=== PATIENT | male | born 1955 | race Caucasian/White ===

== ENCOUNTER 2020-01-12 16:47 | Emergency (ER) | payer MEDICARE ==
[2020-01-12] MEDS: Diphtheria,Pertussis(Acell),Tetanus Vaccine 0.5 ML SDV IM ONE (17:32)
--- NOTE | 2020-01-12 17:38 | EDM.PDOC ---
ED HPI GENERAL MEDICAL PROBLEM - General Chief Complaint: General Stated Complaint: FINGER LACERATION Time Seen by Provider: 01/12/20 17:22 Source of Information: Reports: Patient History Limitations: Reports: No Limitations - History of Present Illness INITIAL COMMENTS - FREE TEXT/NARRATIVE: Pt was working on his combine and cut his right middle finger against a metal part. No loss of function or sensation, here for laceration repair only. Doesn't remember when his last tetanus shot was given and so he will get an up to date Tdap today. Onset: Today Onset Date: 01/12/20 Onset Time: 02:00 Duration: Hour(s): Location: Reports: Upper Extremity, Right Improves with: Reports: None Worsens with: Reports: None Context: Reports: Trauma Associated Symptoms: Reports: No Other Symptoms - Related Data Allergies Allergy/AdvReac Type Severity Reaction Status Date / Time No Known Allergies Allergy Verified 05/12/14 08:50 Home Meds: Home Meds Diclofenac Potassium [Cataflam] 50 mg PO BID 05/12/14 [History] Gabapentin 300 mg PO BID 05/12/14 [History] Hydrochlorothiazide 50 mg PO DAILY 05/12/14 [History] amLODIPine Besylate/Benazepril [Amlodipine-Benazepril 10-20 MG] 1 each PO DAILY 05/12/14 [History] atorvaSTATin [Lipitor] 20 mg PO BEDTIME 05/12/14 [History] metFORMIN HCl [Metformin HCl] 500 mg PO BID 05/12/14 [History] methIMAzole [Methimazole] 10 mg PO DAILY 05/12/14 [History] Metoprolol Succinate [Toprol XL] 25 mg PO DAILY 03/12/15 [History] cephALEXin [Cephalexin] 250 mg PO Q6HR 7 Days #28 capsule 01/12/20 [Rx] Review of Systems - Review of Systems Review Of Systems: Comprehensive ROS is negative, except as noted in HPI. Constitutional: Reports: No Symptoms Eyes: Reports: No Symptoms Respiratory: Reports: No Symptoms Cardiovascular: Reports: No Symptoms, Lightheadedness Musculoskeletal: Reports: Hand Pain, Other (Right middle finger pain) Skin: Reports: Wound, Other (dorsal and ventral laceration,non-circumferential to middle phalanx of his right middle finger) Neurological: Reports: No Symptoms Psychiatric: Reports: No Symptoms ED EXAM, GENERAL - Physical Exam Exam: See Below Exam Limited By: No Limitations General Appearance: Alert, WD/WN, No Apparent Distress Head: Atraumatic, Normocephalic Neck: Normal Inspection, Supple, Non-Tender, Full Range of Motion Respiratory/Chest: No Respiratory Distress, Lungs Clear, Normal Breath Sounds Cardiovascular: Normal Peripheral Pulses, Regular Rate, Rhythm Back Exam: Normal Inspection, Full Range of Motion Extremities: Normal Range of Motion, Other (Right middle finger laceration (see procedure note)) Neurological: Alert, Oriented, CN II-XII Intact, Normal Cognition Psychiatric: Normal Affect Skin Exam: Wound/Incision (Right middle finger laceration (see procedure note)) ED TRAUMA EXTREMITY PROCEDURES - Laceration/Wound Repair Right Medial Dorsal Digit - 3rd (Middle) Lac/Wound Length In cm: 2.5 Appearance: Linear, Mildly Contaminated Distal NVT: Neuro & Vascular Intact, No Tendon Injury Anesthetic Type: Local Local Anesthesia - Lidocaine (Xylocaine): 1% Plain Local Anesthetic Volume: 2cc Skin Prep: Providone-Iodine (Betadine) Saline Irrigation (cc's): 100 Exploration/Debridement/Repair: Wound Explored, In a Bloodless Field Closed With: Sutures Suture Size: 5-0 Suture Type: Prolene, Interrupted Course - Vital Signs Last Recorded V/S: Last Vital Signs Temp 98.1 F 01/12/20 17:46 Pulse 74 01/12/20 17:46 Resp 16 01/12/20 17:46 BP 134/94 H 01/12/20 17:46 Pulse Ox 97 01/12/20 17:46 - Orders/Labs/Meds Meds: Medications Discontinued Medications Generic Name Dose Route Start Last Admin Trade Name Curly PRN Reason Stop Dose Admin Cephalexin Confirm 01/12/20 18:51 01/12/20 18:54 Keflex Administered 01/12/20 18:52 250 mg Dose Administration 250 mg .ROUTE .STK-MED ONE Diphtheria/Tetanus/Acell Pertussis 0.5 ml 01/12/20 17:28 01/12/20 17:32 Boostrix IM 01/12/20 17:29 0.5 ml .ONCE ONE Administration - Re-Assessments/Exams Free Text/Narrative Re-Assessment/Exam: 01/12/20 18:30 Finger laceration repaired; tdap given xray possible 1.2mm fx base of distal phalanx pt was placed in finger splint Rx Keflex written Instructions for SR in 7 days. Return ER if any signs of infection, redness, swelling, pus, fever Departure - Departure Time of Disposition: 18:40 Disposition: Home, Self-Care 01 Clinical Impression: Finger laceration Qualifiers: Encounter type: initial encounter Finger: middle finger Damage to nail status: without damage Foreign body presence: unspecified Laterality: right Qualified Code(s): S61.212A - Laceration without foreign body of right middle finger without damage to nail, initial encounter - Discharge Information *PRESCRIPTION DRUG MONITORING PROGRAM REVIEWED*: No *COPY OF PRESCRIPTION DRUG MONITORING REPORT IN PATIENT KEMI: No Prescriptions: cephALEXin [Cephalexin] 250 mg PO Q6HR 7 Days #28 capsule Instructions: Laceration Care, Adult Care Plan Goals: You have two lacerations to your right middle finger with a partial avulsion to the posterior aspect as well as a hairline fracture. The PA sutured your lacerations with ethilon 5-0 sutures which need to be removed in 10 days. Any RN or above may remove these if you so desire. Monitor wounds themselves for infection: swelling, redness, purulent drainage, loss of sensation and/or increased pain. if this occurs contact the hospital immediately. You have an aluminum splint supporting the fractured area. You may adjust this for comfort but use it often to avoid jarring movements of the middle knuckle of this finger.
[2020-01-12 17:47] VITALS: BP 134/94; PULSE 74
[2020-01-12] MEDS: Cephalexin 250 MG Cap ONE (18:54)
--- NOTE | 2020-01-13 09:16 | CR ---
DATE OF SERVICE: 01/12/20 CLINICAL DATA: Possible fx. RIGHT 3RD DIGIT: There is soft tissue deformity adjacent to the distal phalanx consistent with history of laceration. There is a minimally displaced fracture through the proximal aspect of the distal phalanx. There is also a 2 mm radiodensity adjacent to the base of the distal phalanx dorsally on the lateral view consistent with an osseous fragment or foreign body. No other acute abnormalities. [id number] [facility]
== END 2020-01-12 19:07 | disposition home or self-care (01) ==
LOC: LB.ED 16:47
DX: S61.212A Laceration without foreign body of right middle finger without damage to nail, initial encounter (principal); Z23 Encounter for immunization; W26.8XXA Contact with other sharp object(s), not elsewhere classified, initial encounter
CPT/HCPCS: 12001; 73140; 90471; 90715; 99283; A9270

== ENCOUNTER 2020-03-18 19:09 | Emergency (ER) | payer MEDICARE ==
--- NOTE | 2020-03-18 20:08 | EDM.PDOC ---
ED HPI GENERAL MEDICAL PROBLEM - General Chief Complaint: Laceration Stated Complaint: LACERATION Time Seen by Provider: 03/18/20 19:20 Source of Information: Reports: Patient History Limitations: Reports: No Limitations - History of Present Illness INITIAL COMMENTS - FREE TEXT/NARRATIVE: The patient is a 65-year-old white male who was working on his combine with a combine running and got his hand caught in the moving parts and suffered amputation of the distal 2 cm of his left middle finger. Along with the amputation he suffered laceration of the distal left ring finger and 4 cm laceration of the dorsum of his left hand. His last tetanus immunization was 1 month ago. He denies other injury Onset: Today Onset Date: 03/18/20 Onset Time: 18:30 Location: Reports: Upper Extremity, Left, Other (Laceration involves the dorsum of his hand. Also would laceration of the distal left ring finger and amputation as above with loss of the entire middle finger fingernail) - Related Data Allergies Allergy/AdvReac Type Severity Reaction Status Date / Time No Known Allergies Allergy Verified 05/12/14 08:50 Home Meds: Home Meds Diclofenac Potassium [Cataflam] 50 mg PO BID 05/12/14 [History] Gabapentin 300 mg PO BID 05/12/14 [History] Hydrochlorothiazide 50 mg PO DAILY 05/12/14 [History] amLODIPine Besylate/Benazepril [Amlodipine-Benazepril 10-20 MG] 1 each PO DAILY 05/12/14 [History] atorvaSTATin [Lipitor] 20 mg PO BEDTIME 05/12/14 [History] metFORMIN HCl [Metformin HCl] 500 mg PO BID 05/12/14 [History] methIMAzole [Methimazole] 10 mg PO DAILY 05/12/14 [History] Metoprolol Succinate [Toprol XL] 25 mg PO DAILY 03/12/15 [History] cephALEXin [Cephalexin] 250 mg PO Q6HR 7 Days #28 capsule 01/12/20 [Rx] Past Medical History HEENT History: Reports: Impaired Vision Endocrine/Metabolic History: Reports: Diabetes, Type II - Past Surgical History GI Surgical History: Reports: Hernia, Abdominal, Hernia Repair/Other Social & Family History - Caffeine Use Caffeine Use: Reports: None ED ROS GENERAL - Review of Systems Review Of Systems: See Below Constitutional: Denies: Fever, Chills Respiratory: Reports: No Symptoms GI/Abdominal: Reports: No Symptoms ED EXAM, SKIN/RASH Exam: See Below Exam Limited By: No Limitations General Appearance: Alert, Anxious, Mild Distress Throat/Mouth: Perioral Cyanosis Head: Atraumatic Neck: Normal Inspection, Full Range of Motion Respiratory/Chest: No Respiratory Distress Extremities: Other (Loss of distal 2 cm of the left middle finger, 2cm laceration of the distal left ring finger an 4 cm laceration of the dorsum of the left hand okay) Course - Vital Signs Text/Narrative:: Patient had wounds exposed and moistened with saline with gauze dressing applied over top moistened saline. Patient's last tetanus immunization was within a month. He was given 1 g of Ancef IV and 1 L of lactated Ringer solution. Prior to transfer he was given 1 mg of Dilaudid IM. Case was discussed with Dr. Crawford emergency physician at [facility], [place] who agreed to accept the patient in transfer to the emergency department there. Patient was cautioned against eating or drinking along the way to [place] as he will most likely need operative repair in the OR. Patient prefers transfer via private car versus ambulance - Orders/Labs/Meds Orders: Active Orders 24 hr Category Date Time Status Hand Comp Min 3V Lt [CR] Stat Exams 03/18/20 19:32 Ordered Departure - Departure Time of Disposition: 20:28 Disposition: DC/Tfer to Acute Hospital 02 Condition: Good Clinical Impression: Complete traumatic amputation of left middle finger through phalanx Qualifiers: Encounter type: initial encounter Qualified Code(s): S68.613A - Complete traumatic transphalangeal amputation of left middle finger, initial encounter Laceration of left hand without complication, excluding fingers Qualifiers: Encounter type: initial encounter Qualified Code(s): S61.412A - Laceration without foreign body of left hand, initial encounter Laceration of left ring finger Qualifiers: Encounter type: initial encounter Damage to nail status: without damage - Discharge Information *PRESCRIPTION DRUG MONITORING PROGRAM REVIEWED*: Not Applicable *COPY OF PRESCRIPTION DRUG MONITORING REPORT IN PATIENT KEMI: Not Applicable Forms: ED Department Discharge Additional Instructions: Go directly to [facility] to [facility]. Do not eat or drink anything along the way. Plans for you to have procedure to treat amputation and lacerations at the [facility]. - My Orders Last 24 Hours: My Active Orders 03/18/20 19:32 Hand Comp Min 3V Lt [CR] Stat - Assessment/Plan Last 24 Hours: My Active Orders 03/18/20 19:32 Hand Comp Min 3V Lt [CR] Stat
[2020-03-18] MEDS ORDERED: ceFAZolin 1 GM Vial IVPUSH ONE (20:37)
[2020-03-18] MEDS ORDERED: HYDROMORPHONE SCH (21:00)
[2020-03-19 01:13] VITALS: BP 90/57; PULSE 47
[2020-03-19] MEDS ORDERED: Lactated Ringers 1,000 ML IV STA (01:44)
--- NOTE | 2020-03-19 07:51 | CR ---
Date of Service: 03/18/20 Clinical Data: lacerations LEFT HAND: No priors. Patient is status post partial amputation of the distal phalanx of the third digit. There is also a large laceration involving the tip of the second digit with no associated bony abnormality. No other acute abnormalities. [id number]
== END 2020-03-18 21:05 ==
LOC: LB.ED 19:20
DX: S68.613A Complete traumatic transphalangeal amputation of left middle finger, initial encounter (principal); S61.215A Laceration without foreign body of left ring finger without damage to nail, initial encounter; S61.412A Laceration without foreign body of left hand, initial encounter; E11.9 Type 2 diabetes mellitus without complications; Z79.84 Long term (current) use of oral hypoglycemic drugs; W23.0XXA Caught, crushed, jammed, or pinched between moving objects, initial encounter
CPT/HCPCS: 73130; 82962; 96374; 99285; J0690; J1170; J7120

== ENCOUNTER 2021-01-21 11:31 | Emergency (ER) | payer MEDICARE ==
[2021-01-21] MEDS ORDERED: HYDROmorphone 2 MG/ML SDV IVPUSH ONE (11:54)
[2021-01-21] MEDS ORDERED: HYDROmorphone 2 MG/ML SDV ONE (12:09)
[2021-01-21 12:26] VITALS: BP 135/79; PULSE 62
[2021-01-21] MEDS ORDERED: Ketorolac 30 MG/ML SDV IVPUSH ONE (12:47)
[2021-01-21] MEDS ORDERED: Ketorolac 30 MG/ML SDV ONE (13:00)
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
--- NOTE | 2021-01-21 16:08 | CR ---
Date of Service: 01/21/21 Clinical Data: injury. RIGHT LOWER LEG: No priors. No acute fracture or dislocation. No lytic or blastic bone lesions. [id number] [facility]
--- NOTE | 2021-01-21 16:10 | CR ---
Date of Service: 01/21/21 Clinical Data: injury. RIGHT FEMUR: No acute fracture or dislocation. No lytic or blastic bone lesions. Mild osteoarthritic changes of the right hip and right knee. No soft tissue abnormalities. [id number] [facility]
== END 2021-01-21 13:18 | disposition home or self-care (01) ==
LOC: LB.ED 11:31
DX: S70.11XA Contusion of right thigh, initial encounter (principal); S80.01XA Contusion of right knee, initial encounter; E78.00 Pure hypercholesterolemia, unspecified; I10 Essential (primary) hypertension; E11.9 Type 2 diabetes mellitus without complications; Z79.84 Long term (current) use of oral hypoglycemic drugs; Z79.899 Other long term (current) drug therapy; W23.1XXA Caught, crushed, jammed, or pinched between stationary objects, initial encounter
CPT/HCPCS: 73552; 73590; 96374; 96375; 99283; J1170; J1885

== ENCOUNTER 2021-09-10 09:23 | Emergency (ER) | payer MEDICARE ==
[2021-09-10] MEDS: Aspirin 81 MG Tab.Chew PO ONE (09:51)
[2021-09-10 10:13] VITALS: BP 133/88; PULSE 55
== END 2021-09-10 11:32 | disposition home or self-care (01) ==
LOC: LB.ED 09:23
DX: R42 Dizziness and giddiness (principal); I10 Essential (primary) hypertension; E11.9 Type 2 diabetes mellitus without complications
CPT/HCPCS: 36415; 71045; 80053; 84484; 93005; 93010; 99283; 99284-25; A9270-GY; U0002

== ENCOUNTER 2022-06-17 14:55 | Emergency (ER) | payer MEDICARE ==
[2022-06-17] MEDS: Aspirin 81 MG Tab.Chew PO ONE (14:57)
[2022-06-17] MEDS: Nitroglycerin 0.4 MG Tab.SL SL ONE (15:06)
[2022-06-17 15:39] LABS: ESTIMATED GFR 73 mL/min (>60)
[2022-06-17] MEDS: Pantoprazole 40 MG Vial IVPUSH ONE (18:23)
[2022-06-17] MEDS: Magnesium Sulfate/Water 50 ML ONE (18:24)
[2022-06-17] MEDS: Magnesium Sulfate/Water 2 GM in Premix Bag 1 BAG IV ONE (18:25)
[2022-06-17 22:03] VITALS: BP 116/73; PULSE 68
== END 2022-06-17 20:10 | disposition home or self-care (01) ==
LOC: LB.ED 14:55
DX: K21.9 Gastro-esophageal reflux disease without esophagitis (principal); E78.00 Pure hypercholesterolemia, unspecified; I10 Essential (primary) hypertension; E11.9 Type 2 diabetes mellitus without complications; Z79.84 Long term (current) use of oral hypoglycemic drugs; Z79.899 Other long term (current) drug therapy
CPT/HCPCS: 36415; 71045; 71250; 74176; 80053; 83735; 84484; 85025; 85610; 85730; 93005; 96365; 96366; 96375; 99285-25; A9270-GY; C9113; J3475

== ENCOUNTER 2024-08-19 10:15 | Emergency (ER) | payer MEDICARE ==
[2024-08-19] MEDS: Sodium Chloride 0.9% 1,000 ML IV ONE (10:40)
[2024-08-19 10:51] LABS: BASOPHILS ABSOLUTE AUTO 0.04 K/uL (0.02-0.10); BASOPHILS PERCENT AUTO 0.4 % (0.0-0.5); EOSINOPHILS ABSOLUTE AUTO 0.42 K/uL (0.04-0.40); EOSINOPHILS PERCENT AUTO 4.4 % (1.0-5.0); HEMATOCRIT 41.2 % (40.0-54.0); HEMOGLOBIN 13.9 g/dL (13.0-18.0); LYMPHOCYTES ABSOLUTE AUTO 2.06 K/uL (1.50-4.00); LYMPHOCYTES PERCENT AUTO 21.5 % (20.0-40.0); MEAN CORPUSCULAR HEMOGLOBIN 32.8 pg (27.0-32.0); MEAN CORPUSCULAR HGB CONC 33.7 g/dL (31.0-35.0); MEAN CORPUSCULAR VOLUME 97 fL (76-96); MEAN PLATELET VOLUME 9.9 fL (6.0-10.0); MONOCYTES ABSOLUTE AUTO 0.72 K/uL (0.20-0.80); MONOCYTES PERCENT AUTO 7.5 % (3.0-10.0); NEUTROPHILS ABSOLUTE AUTO 6.34 K/uL (2.00-7.50); NEUTROPHILS PERCENT AUTO 66.2 % (45.0-70.0); PLATELET COUNT,PLT 249 K/uL (150-400); RED BLOOD CELL COUNT 4.24 M/uL (4.50-6.50); RED CELL DISTRIBUTION WIDTH 14.1 % (11.0-16.0); WHITE BLOOD CELL COUNT,WBC 9.6 K/uL (4.0-11.0)
[2024-08-19] MEDS ORDERED: Sodium Chloride 0.9% 10 ML Syringe FLUSH PRN (10:52)
[2024-08-19 11:05] LABS: MAGNESIUM 1.8 mg/dL (1.8-2.4); TROPONIN I HIGH SENSITIVITY 10.9 pg/ml (<=60.4)
[2024-08-19 11:07] LABS: A/G RATIO 1.2 (0.8-2.0); ALBUMIN 3.5 g/dL (3.4-5.0); ANION GAP 11.8 mmol/L (5.0-15.0); BILIRUBIN TOTAL 0.5 mg/dL (0.0-1.0); CALCIUM 8.5 mg/dL (8.5-10.1); CARBON DIOXIDE,CO2 29.5 mmol/L (21.0-32.0); CREATININE 1.37 mg/dL (0.70-1.30); EST CRCL DRUG DOSING (CG) 49.46 mL/min; POTASSIUM,K 3.3 mmol/L (3.5-5.1); PROTEIN TOTAL,TP 6.5 g/dL (6.4-8.2)
[2024-08-19 11:12] LABS: INR 0.9 (1.0-3.5); PTT,PARTIAL THROMBOPLSTIN TIME 21.1 SECONDS (24.4-33.2)
[2024-08-19 11:14] LABS: PROTHROMBIN TIME 9.7 sec (9.0-11.5)
[2024-08-19] MEDS: Potassium Chloride Riders 10 MEQ in Premix Bag 1 BAG IV ONE (11:14)
[2024-08-19 15:58] LABS: APPEARANCE,URINE CLEAR (CLEAR); BILIRUBIN,URINE NEGATIVE (NEGATIVE); COLOR,URINE YELLOW; GLUCOSE,URINE NEGATIVE (NEGATIVE); KETONES,URINE NEGATIVE (NEGATIVE); LEUKOCYTE ESTERASE,URINE NEGATIVE (NEGATIVE); NITRITE,URINE NEGATIVE (NEGATIVE); OCCULT BLOOD,URINE TRACE-LYSED (NEGATIVE); PH,URINE 5.5 (5.0-8.0); PROTEIN,URINE NEGATIVE (NEGATIVE); UROBILINOGEN,URINE 0.2 E.U./dL (0.2-1.0)
[2024-08-19 15:59] LABS: WBC,URINE 0-5 /HPF
[2024-08-19 16:26] VITALS: BP 116/77; PULSE 63
== END 2024-08-19 16:30 | disposition home or self-care (01) ==
LOC: LB.ED 10:15
DX: R55 Syncope and collapse (principal); I10 Essential (primary) hypertension; I25.10 Atherosclerotic heart disease of native coronary artery without angina pectoris; E78.00 Pure hypercholesterolemia, unspecified; E11.9 Type 2 diabetes mellitus without complications; Z79.899 Other long term (current) drug therapy; Z79.84 Long term (current) use of oral hypoglycemic drugs
CPT/HCPCS: 36415; 80053; 81001; 82947; 83735; 84484; 85025; 85610; 85730; 96361; 96365; 99284; J3480; J7030